=== PATIENT | male | born 1945 | race Caucasian/White ===

== ENCOUNTER → 2018-10-05 | Day surgery (SDC) | payer MEDICARE ==
[~2018-10-05] MED LIST: ARICEPT5 MG PO; CEFTRIAXONE SOD 1 GM/NS 50 ML 50 ML IV ONE; DEPAKOTE125 MG PO; DIGOXIN125 MCG PO; DIVALPROEX SOD250 MG PO; DIVALPROEX SOD500 MG PO; DOCUSATE SODIU100 M1 PO; EPHEDRINE SULFATE INJ 50 MG/10 ML SYR ONE; FENTANYL CITRATE/PF 100MCG/2 ML INJ ONE; HALOPERIDOL1 MG PO; IOPAMIDOL 610MG/1ML 300 MG/ML VIAL IV ONE; LIDOCAINE HCL 2% LOCAL INJ 5 ML SDV VIAL INJ ONE; LISINOPRIL10 MG PO; LORAZEPAM1 MG PO; MAGNESIUM OXID400 MG PO; METOPROLOL SUCC25 MG PO; MIDAZOLAM HCL 2 MG/2 ML VIAL ONE; MULTI-VITAMIN1 EACH PO; POLYETHYLENE GL17 GM PO; PROPOFOL IV EMULSION 10 MG/ML 20 ML VIAL ONE; RISPERDAL1 MG PO; SERTRALINE HCL50 MG PO; SEVOFLURANE INHAL SOLN 250 ML PEN BTL ONE; TRAZODONE HCL50 MG PO; TYLENOL PO; ULTRAM 50MG50 MG PO; XARELTO20 MG PO; ZYPREXA5 MG PO
--- OUTSIDE RECORDS SUMMARY | 2018-10-05 05:35 | XMS REPORT | Summary of Care ---
Author Author [facility] Organization [facility] Address Unknown Phone Unavailable Encounter HQ Bradley(YAHAIRA) [id number] Date(s): 08/15/17 - 08/15/17 [facility] [address] [place] [address]- Discharge Disposition: Home or Self Care Attending Physician: Cecily Hall MD Referring Physician: Cecily Hall MD Vital Signs No data available for this section Problem List Condition Effective Dates Status Health Status Informant Atrial Active fibrillation(Confirm ed) Pacemaker(Confirmed) Active Dementia(Confirmed) Resolved Hypertension(Confirm Resolved ed) Atrophy of Active muscle(Confirmed) Allergies, Adverse Reactions, Alerts Substance Reaction Severity Status NKDA Active Medications No data available for this section Results No data available for this section Immunizations No data available for this section Procedures No data available for this section Social History Social History Type Response Smoking Status Unknown if ever smoked; Exposure to Tobacco Smoke None; Cigarette Smoking Last 365 Days No; Reg Smoking Cessation Counseling No Assessment and Plan No data available for this section
--- OUTSIDE RECORDS SUMMARY | 2018-10-05 05:35 | XMS REPORT | Summary of Care ---
Author Author [facility] Organization [facility] Address Unknown Phone Unavailable Encounter ANDREA Huerta(YAHAIRA) [id number] Date(s): 07/30/17 - 07/30/17 [facility] [address] [place] [address]- [phone] Discharge Diagnosis: Gastrojejunostomy tube dislodgement Discharge Disposition: Home or Self Care Attending Physician: Sree Mujica DO Vital Signs 1 2 3 Most recent to oldest [Reference Range]: 187.96 cm (07/30/17 3:10 PM) Height 97.9 DegF (07/30/17 8:00 PM) 97.8 DegF (07/30/17 5:22 PM) 97.8 DegF (07/30/17 3:10 PM) Temperature Oral [96.4-99.1 DegF] 120/78 mmHg (07/30/17 8:00 PM) 102/75 mmHg (07/30/17 6:30 PM) 95/78 mmHg (07/30/17 5:22 PM) Blood Pressure [90-140/60-90 mmHg] 16 BRMIN (07/30/17 8:00 PM) 18 BRMIN (07/30/17 3:10 PM) Respiratory Rate [14-20 BRMIN] 78 bpm (07/30/17 8:00 PM) 87 bpm (07/30/17 6:30 PM) 86 bpm (07/30/17 5:22 PM) Peripheral Pulse Rate [60-100 bpm] 90.909 kg (07/30/17 3:10 PM) Weight 25.73 m2 (07/30/17 3:10 PM) Body Mass Index Problem List Condition Effective Dates Status Health [...]
--- OUTSIDE RECORDS SUMMARY | 2018-10-05 05:35 | XMS REPORT | Continuity of Care Document ---
Author Author [facility] Address Unknown Phone Unavailable Problems Problem Status Onset Date Classification Date Reported Comments Source J TUBE PLACEMENT Active 08/14/2017 [facility] Discharge Diagnosis: Gastrojejunostomy tube dislodgement 07/30/2017 08/02/2017 [facility] PULLED OUT G TUBE Active 07/30/2017 [facility] Discharge Diagnosis: Laceration of scalp 07/16/2017 07/19/2017 [facility] Discharge Diagnosis: Acute head injury 07/16/2017 07/19/2017 [facility] FALL Active 07/15/2017 [facility] Atrial fibrillation Active Problem 08/18/2017 [facility] Pacemaker Active Problem 08/18/2017 [facility] Dementia Resolved Problem 08/18/2017 [facility] Hypertension Resolved Problem 08/18/2017 [facility] Atrophy of muscle Active Problem 08/18/2017 [facility] DYSPHAGIA, UNSPECIFIED Active [facility] ENCOUNTER FOR ATTENTION TO GASTROSTOMY Active [facility] Medications Medication Details Route Status Patient Instructions Ordering Provider Order Date Source NS (Bolus) IV 1,000 mL, 1,000 ml/hr, Infuse Over: 1 hr, Route: IV, ONCE, Priority: STAT, Dosing Weight 90.909 kg, Start date: 07/16/17 5:50:00 CDT, Duration: 1 doses or times, Stop date: 07/16/17 5:50:00 CDT Inactive 07/16/2017 [facility] Allergies, Adverse Reactions, Alerts Substance Category Reaction Severity Reaction type Status Date Reported Comments Source Immunizations Immunization Date Given Site Status Last Updated Comments Source Results Order Name Results Value Reference Range Date Interpretation Comments Source Gastric Tube Check (VR) Gastric Tube Check (VR) Patient Name: TORRIE PUGH : 1945; Age: 72 years Male MR: [id number] Study: Gastric Tube Check (VR) 08/15/2017 1:48 PM CDT PROCEDURE: Attempted cannulation of the J-tube stoma. Unable to place a J-tube CLINICAL INFORMATION: Need for long-term feeds CONSENT: The procedure, risks, benefits and alternatives were discussed with the patient and written informed consent was obtained. A "time out" was performed per protocol prior to the procedure. 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 Upon physical examination, the stomal entry site was barely visible. The stoma was probed using a 4-Korean catheter with attempt to recannulate. Small amount of contrast was also administered which did not appear within the jejunum. The contrast appears to localize extraluminally, possibly within the peritoneum or abdominal wall. IMPRESSION: Unable to recannulate the J-tube stoma site. SL: [id number] 08/15/2017 - - Read by: Pearl Puentes MD Dictated Date/time: 08/15/17 16:20 Electronically Signed by: Pearl Puentes MD 08/15/17 16:25 FINAL REPORT [facility] Abdomen AP DX Abdomen AP DX Clinical Indication: - J tube replaced at osh, gastrograffin please; Comparison: None FINDINGS: AP supine radiograph of the abdomen, before and after injection of jejunostomy tube. There is no abnormal dilatation of bowel loops. There is no pneumoperitoneum. There are no radiopaque densities noted. There are no acute osseous abnormalities noted. Jejunostomy tube tip in a right lower quadrant loop of jejunum. No actual luminal contrast. IMPRESSION: No acute radiographic abnormalities of the abdomen. Tip of jejunostomy tube in jejunal loop in the right lower quadrant. SL: [id number] 07/30/2017 - - Read by: Ari Cat MD Dictated Date/time: 07/30/17 16:13 Electronically Signed by: Ari Cat MD 07/30/17 16:14 FINAL REPORT [facility] URINE AND STOOL UA Nitrite Negative (07/16/17 5:59 AM) Negative 07/16/2017 [facility] URINE AND STOOL UA Urobilinogen 4.0 mg/dL 0.1 - 1.0 07/16/2017 [facility] URINE AND STOOL UA Sq Epi Occasional /LPF Few /LPF 07/16/2017 [facility] URINE AND STOOL UA Leuk Est Negative (07/16/17 5:59 AM) Negative 07/16/2017 [facility] URINE AND STOOL UA WBC 1 /HPF 0 - 5 07/16/2017 [facility] URINE AND STOOL UA Bacteria Occasional /HPF None Seen /HPF 07/16/2017 [facility] URINE AND STOOL UA RBC 1 /HPF 0 - 2 07/16/2017 [facility] URINE AND STOOL UA Blood Negative (07/16/17 5:59 AM) Negative 07/16/2017 [facility] URINE AND STOOL UA Glucose Negative mg/dL Negative mg/dL 07/16/2017 [facility] URINE AND STOOL UA Ketones Negative mg/dL Negative mg/dL 07/16/2017 [facility] URINE AND STOOL UA Bili Negative *NA* (07/16/17 5:59 AM) Negative 07/16/2017 [facility] URINE AND STOOL UA pH 7.0 5.0 - 8.0 07/16/2017 [facility] URINE AND STOOL UA Spec Grav 1.016 <=1.030 07/16/2017 [facility] URINE AND STOOL UA Protein Negative mg/dL Negative mg/dL 07/16/2017 [facility] URINE AND STOOL UA Turbidity Clear (07/16/17 5:59 AM) Clear 07/16/2017 [facility] URINE AND STOOL UA Color Yellow *NA* (07/16/17 5:59 AM) Yellow 07/16/2017 [facility] CARDIAC ENZYMES CK MB Index 3.1 0.0 - 2.5 07/16/2017 [facility] CARDIAC ENZYMES Troponin-I null 0.00 - 0.40 07/16/2017 [facility] CARDIAC ENZYMES CK MB 0.5 ng/mL 0.5 - 3.6 07/16/2017 [facility] CARDIAC ENZYMES Total CK 16 unit/L 12 - 191 07/16/2017 [facility] CHEM PANEL eGFR 100 mL/min/1.73m2 07/16/2017 Result Comment: The eGFR is calculated using the CKD-EPI formula. In most young, healthy individuals the eGFR will be >90 mL/min/1.73m2. The eGFR declines with age. An eGFR of 60-89 may be normal in some populations, particularly the elderly, for whom the CKD-EPI formula has not been extensively validated. Use of the eGFR is not recommended in the following populations: Individuals with unstable creatinine concentrations, including patients and those with serious co-morbid conditions. Patients with extremes in muscle mass or diet. The data above are obtained from the National Kidney Disease Education Program (NKDEP) which additionally recommends that when the eGFR is used in patients with extremes of body mass index for purposes of drug dosing, the eGFR should be multiplied by the estimated BMI. [facility] CHEM PANEL B/C Ratio 29 6 - 25 07/16/2017 [facility] Globulin 4.3 g/dL 2.7 - 4.2 07/16/2017 [facility] CHEM PANEL A/G Ratio 0.6 0.7 - 1.6 07/16/2017 [facility] CHEM PANEL Alk Phos 75 unit/L 39 - 136 07/16/2017 [facility] CHEM PANEL Bili Total 0.7 mg/dL 0.2 - 1.3 07/16/2017 [facility] CHEM PANEL AGAP 10.5 meq/L 10.0 - 20.0 07/16/2017 [facility] CHEM PANEL AST 13 unit/L 0 - 37 07/16/2017 [facility] PAN[facility] Calcium Lvl 8.6 mg/dL 8.5 - 10.5 07/16/2017 [facility] CHEM PANEL Total Protein 6.8 g/dL 6.4 - 8.4 07/16/2017 [facility] CHEM PANEL Albumin Lvl 2.5 g/dL 3.5 - 5.0 07/16/2017 [facility] CHEM PANEL ALT 19 unit/L 0 - 65 07/16/2017 [facility] CHEM PANEL CO2 25 meq/L 24 - 32 07/16/2017 [facility]M PANEL Creatinine Lvl 0.58 mg/dL 0.50 - 1.40 07/16/2017 [facility]M PANEL Sodium Lvl 131 meq/L 135 - 145 07/16/2017 [facility]M PANEL Potassium Lvl 4.5 meq/L 3.5 - 5.1 07/16/2017 [facility] CHEM PANEL Chloride Lvl 100 meq/L 95 - 109 07/16/2017 [facility] CHEM PANEL BUN 17 mg/dL 7 - 22 07/16/2017 [facility] PANEL Glucose Lvl 93 mg/dL 70 - 99 07/16/2017 [facility] HEMATOLOGY Monocytes 7.3 % 2.0 - 12.0 07/16/2017 [facility] HEMATOLOGY Lymphocytes 24.1 % 20.0 - 40.0 07/16/2017 [facility] HEMATOLOGY Segs 64.6 % 45.0 - 75.0 07/16/2017 [facility] HEMATOLOGY Eosinophils 3.1 % 0.0 - 4.0 07/16/2017 [facility] HEMATOLOGY Basophils # 0.1 K/CMM 0.0 - 0.2 07/16/2017 [facility] HEMATOLOGY Eosinophils # 0.2 K/CMM 0.0 - 0.5 07/16/2017 [facility] HEMATOLOGY Monocytes # 0.4 K/CMM 0.0 - 0.8 07/16/2017 [facility] Lymphocytes # 1.4 K/CMM 1.0 - 5.5 07/16/2017 [facility] Segs-Bands # 3.8 K/CMM 1.5 - 8.1 07/16/2017 [facility] Basophils 0.9 % 0.0 - 1.0 07/16/2017 [facility] INR 1.52 0.85 - 1.17 07/16/2017 [facility] PT 18.6 s 12.0 - 14.7 07/16/2017 [facility] PTT 32.0 s 22.9 - 35.8 07/16/2017 [facility] MCHC 33.9 g/dL 32.0 - 36.0 07/16/2017 [facility] MPV 7.5 fL 7.4 - 10.4 07/16/2017 [facility] Platelet 385 K/CMM 133 - 450 07/16/2017 [facility] RDW 18.0 % 11.5 - 14.5 07/16/2017 [facility] RBC 4.16 M/CMM 4.70 - 6.10 07/16/2017 [facility] WBC 5.9 K/CMM 3.7 - 10.4 07/16/2017 [facility] MCH 32.1 pg 27.0 - 31.0 07/16/2017 [facility] Hgb 13.3 g/dL 14.0 - 18.0 07/16/2017 [facility] Hct 39.4 % 42.0 - 54.0 07/16/2017 [facility] MCV 94.7 fL 80.0 - 94.0 07/16/2017 [facility] Pelvis AP DX Pelvis AP DX Study: Pelvis, single view Clinical Indication: - fall, pelvic pain Comparison: None FINDINGS: Single frontal view of the pelvis shows no acute displaced bony fracture or joint dislocation. Bones are demineralized. Degenerative change in the lower lumbar spine is seen. IMPRESSION: No acute bony abnormality of the pelvis. SL: [id number] 07/16/2017 - - Read by: Anders Moss MD Dictated Date/time: 07/16/17 08:17 Electronically Signed by: Anders Moss MD 07/16/17 08:18 FINAL REPORT [facility] Chest 1view DX Chest 1view DX CHEST RADIOGRAPH SINGLE VIEW INDICATION: Posttraumatic chest pain COMPARISON: None IMPRESSION: An intracardiac pacer device is in place. The cardiac silhouette appears prominent, without radiographic evidence of acute congestive failure. There is blunting of the left costophrenic sulcus, suggesting potential mild left pleural effusion or pleural thickening. Linear atelectasis or scarring is noted at the right lung base. There is no consolidation. No pneumothorax is visible. No acute bony abnormalities are seen. SL:07/16/2017 - - Read by: Arturo Junior MD Dictated Date/time: 07/16/17 06:31 Electronically Signed by: Arturo Junior MD 07/16/17 06:32 FINAL REPORT [facility] Brain wo contrast CT Brain wo contrast CT CT BRAIN WITHOUT CONTRAST, CT CERVICAL SPINE WITHOUT CONTRAST INDICATION: Posttraumatic head and cervical spine pain, ct dlp: 1024.06 mgy-cm - pain post fall/Pt. Was sleeping and rolled off bed w/ minor head lac. Pt is on intact coagulation. Unknown LOC. COMPARISON: None DISCUSSION: BRAIN: There are generalized involutional changes of the brain and microangiopathic changes of the white matter. There is no evidence of acute vascular insults, space occupying lesions, hemorrhage, hydrocephalus, midline shift, or extra- axial fluid collections. The calvarium is intact. CERVICAL SPINE: There are no acute fractures or subluxations. Vertebral body alignment is within normal limits. There is advanced cervical spondylosis, resulting in varying degrees of spinal canal stenosis. Spinal canal stenosis appears the worst at C5- C6, potentially moderate or severe. There is severe foraminal stenosis at multiple levels. The soft tissues are grossly unremarkable. Ligament, spinal cord, and/or vascular abnormalities cannot be excluded on the basis of this examination. IMPRESSION: 1. Chronic age-related changes of the brain. No acute intracranial abnormalities are visualized. 2. No acute cervical spine abnormalities are visualized. Advanced cervical spondylosis is noted. SL:07/16/2017 - - Read by: Arturo Junior MD Dictated Date/time: 07/16/17 05:13 Electronically Signed by: Arturo Junior MD 07/16/17 05:22 FINAL REPORT [facility] Spine cervical wo contrast CT Spine cervical wo contrast CT CT BRAIN WITHOUT CONTRAST, CT CERVICAL SPINE WITHOUT CONTRAST INDICATION: Posttraumatic head and cervical spine pain, ct dlp: 1024.06 mgy-cm - pain post fall/Pt. Was sleeping and rolled off bed w/ minor head lac. Pt is on intact coagulation. Unknown LOC. COMPARISON: None DISCUSSION: BRAIN: There are generalized involutional changes of the brain and microangiopathic changes of the white matter. There is no evidence of acute vascular insults, space occupying lesions, hemorrhage, hydrocephalus, midline shift, or extra- axial fluid collections. The calvarium is intact. CERVICAL SPINE: There are no acute fractures or subluxations. Vertebral body alignment is within normal limits. There is advanced cervical spondylosis, resulting in varying degrees of spinal canal stenosis. Spinal canal stenosis appears the worst at C5- C6, potentially moderate or severe. There is severe foraminal stenosis at multiple levels. The soft tissues are grossly unremarkable. Ligament, spinal cord, and/or vascular abnormalities cannot be excluded on the basis of this examination. IMPRESSION: 1. Chronic age-related changes of the brain. No acute intracranial abnormalities are visualized. 2. No acute cervical spine abnormalities are visualized. Advanced cervical spondylosis is noted. SL:16 07/16/2017 - - Read by: Arturo Junior MD Dictated Date/time: 07/16/17 05:13 Electronically Signed by: Arturo Junior MD 07/16/17 05:22 FINAL REPORT [facility] Vital Signs Vital Sign Value Date Comments Source Respitory Rate 16 07/31/2017 [facility] Temperature Oral (F) 97.9 F 07/31/2017 [facility] Systolic (mm Hg) 120 07/31/2017 [facility] Diastolic (mm Hg) 78 07/31/2017 [facility] Heart Rate 78 07/31/2017 [facility] Heart Rate 87 07/30/2017 [facility] Systolic (mm Hg) 102 07/30/2017 [facility] Diastolic (mm Hg) 75 07/30/2017 [facility] Temperature Oral (F) 97.8 F 07/30/2017 [facility] Systolic (mm Hg) 95 07/30/2017 [facility] Diastolic (mm Hg) 78 07/30/2017 [facility] Heart Rate 86 07/30/2017 [facility] Weight 90.909 07/30/2017 [facility] BMI Calculated 25.73 07/30/2017 [facility] Respitory Rate 18 07/30/2017 [facility] Temperature Oral (F) 97.8 F 07/30/2017 [facility] Height 187.96 cm 07/30/2017 [facility] Systolic (mm Hg) 91 07/16/2017 [facility] Diastolic (mm Hg) 78 07/16/2017 [facility] Respitory Rate 20 07/16/2017 [facility] Systolic (mm Hg) 99 07/16/2017 [facility] Diastolic (mm Hg) 77 07/16/2017 [facility] Systolic (mm Hg) 101 07/16/2017 [facility] Diastolic (mm Hg) 76 07/16/2017 [facility] Respitory Rate 23 07/16/2017 [facility] Respitory Rate 24 07/16/2017 [facility] Heart Rate 95 07/16/2017 [facility] Temperature Oral (F) 98 F 07/16/2017 [facility] Temperature Oral (F) 97.8 F 07/16/2017 [facility] Weight 90.909 07/16/2017 [facility] BMI Calculated 25.73 07/16/2017 [facility] Heart Rate 81 07/16/2017 [facility] Height 187.96 cm 07/16/2017 [facility] Encounters Location Location Details Encounter Type Encounter Number Reason For Visit Attending Provider ADM Date DC Date Status Source [facility] Emergency [id number] Joel Marino 07/16/2017 07/16/2017 [facility] Emergency [id number] Sree Milesuma 07/30/2017 07/31/2017 [facility] Outpatient [id number] Cecily Hall 08/15/2017 08/16/2017 [facility] Procedures Procedure Code Date Perfomer Comments Source
--- OUTSIDE RECORDS SUMMARY | 2018-10-05 05:35 | XMS REPORT | Summary of Care ---
Author Author [facility] Organization [facility] Address Unknown Phone Unavailable Encounter ANDREA Huerta(YAHAIRA) [id number] Date(s): 07/16/17 - 07/16/17 [facility] [id number] [place] [address]- Discharge Diagnosis: Laceration of scalp Discharge Diagnosis: Acute head injury Discharge Disposition: Home or Self Care Attending Physician: Joel Marino MD Vital Signs 1 2 3 Most recent to oldest [Reference Range]: 187.96 cm (07/16/17 4:08 AM) Height 98 DegF (07/16/17 4:30 AM) 97.8 DegF (07/16/17 4:08 AM) Temperature Oral [96.4-99.1 DegF] 91/78 mmHg (07/16/17 9:42 AM) 99/77 mmHg (07/16/17 8:50 AM) 101/76 mmHg (07/16/17 8:07 AM) Blood Pressure [90-140/60-90 mmHg] 20 BRMIN (07/16/17 9:42 AM) 23 BRMIN *HI* (07/16/17 8:07 AM) 24 BRMIN *HI* (07/16/17 6:25 AM) Respiratory Rate [14-20 BRMIN] 95 bpm (07/16/17 4:30 AM) 81 bpm (07/16/17 4:08 AM) Peripheral Pulse Rate [60-100 bpm] 90.909 kg (07/16/17 4:08 AM) Weight 25.73 m2 (07/16/17 4:08 AM) Body Mass Index Problem List No data available for this section Allergies, Adverse Reactions, Alerts Substance Reaction Severity Status NKDA Active Medications NS (Bolus) IV 1,000 mL, 1,000 ml/hr, Infuse Over: 1 hr, Route: IV, ONCE, Priority: STAT, Dosin g Weight 90.909 kg, Start date: 07/16/17 5:50:00 CDT, Duration: 1 doses or times , Stop date: 07/16/17 5:50:00 CDT Start Date: 07/16/17 Stop Date: 07/16/17 Status: Completed Results ELECTROLYTES Most recent to 1 oldest [Reference Range]: Sodium Lvl [135-145 131 mEq/L mEq/L] *LOW* (07/16/17 4:39 AM) Potassium Lvl 4.5 mEq/L [3.5-5.1 mEq/L] (07/16/17 4:39 AM) Chloride Lvl [95-109 100 mEq/L mEq/L] (07/16/17 4:39 AM) CO2 [24-32 mEq/L] 25 mEq/L (07/16/17 4:39 AM) AGAP [10.0-20.0 10.5 mEq/L mEq/L] (07/16/17 4:39 AM) CHEM PANEL Most recent to 1 oldest [Reference Range]: Creatinine Lvl 0.58 mg/dL [0.50-1.40 mg/dL] (07/16/17 4:39 AM) eGFR 100 mL/min/1.73m2 1 *NA* (07/16/17 4:39 AM) BUN [7-22 mg/dL] 17 mg/dL (07/16/17 4:39 AM) B/C Ratio [6-25] 29 *HI* (07/16/17 4:39 AM) Glucose Lvl [70-99 93 mg/dL mg/dL] (07/16/17 4:39 AM) Total Protein 6.8 g/dL [6.4-8.4 g/dL] (07/16/17 4:39 AM) Albumin Lvl [3.5-5.0 2.5 g/dL g/dL] *LOW* (07/16/17 4:39 AM) Globulin [2.7-4.2 4.3 g/dL g/dL] *HI* (07/16/17 4:39 AM) A/G Ratio [0.7-1.6] 0.6 *LOW* (07/16/17 4:39 AM) Calcium Lvl 8.6 mg/dL [8.5-10.5 mg/dL] (07/16/17 4:39 AM) ALT [0-65 unit/L] 19 unit/L (07/16/17 4:39 AM) AST [0-37 unit/L] 13 unit/L (07/16/17 4:39 AM) Alk Phos [39-136 75 unit/L unit/L] (07/16/17 4:39 AM) Bili Total [0.2-1.3 0.7 mg/dL mg/dL] (07/16/17 4:39 AM) 1Result Comment: The eGFR is calculated using the [...] from the National Kid[employer] Education Program ( NKDEP) which additionally recommends that when the eGFR is used in patients with extremes of body mass index for purposes of drug dosing, the eGFR should be mul tiplied by the estimated BMI. CARDIAC ENZYMES Most recent to 1 oldest [Reference Range]: Total CK [12-191 16 unit/L unit/L] (07/16/17 4:39 AM) CK MB [0.5-3.6 0.5 ng/mL ng/mL] (07/16/17 4:39 AM) CK MB Index 3.1 [0.0-2.5] *HI* (07/16/17 4:39 AM) Troponin-I <0.02 ng/mL [0.00-0.40 ng/mL] (07/16/17 4:39 AM) URINE AND STOOL Most recent to 1 oldest [Reference Range]: UA Turbidity [Clear] Clear (07/16/17 5:59 AM) UA Color [Yellow] Yellow *NA* (07/16/17 5:59 AM) UA pH [5.0-8.0] 7.0 (07/16/17 5:59 AM) UA Spec Grav 1.016 [<=1.030] (07/16/17 5:59 AM) UA Glucose [Negative Negative mg/dL mg/dL] *NA* (07/16/17 5:59 AM) UA Blood [Negative] Negative (07/16/17 5:59 AM) UA Ketones [Negative Negative mg/dL mg/dL] *NA* (07/16/17 5:59 AM) UA Protein [Negative Negative mg/dL mg/dL] (07/16/17 5:59 AM) UA Urobilinogen 4.0 mg/dL [0.1-1.0 mg/dL] *HI* (07/16/17 5:59 AM) UA Bili [Negative] Negative *NA* (07/16/17 5:59 AM) UA Leuk Est Negative [Negative] (07/16/17 5:59 AM) UA Nitrite Negative [Negative] (07/16/17 5:59 AM) UA WBC [0-5 /HPF] 1 /HPF (07/16/17 5:59 AM) UA RBC [0-2 /HPF] 1 /HPF (07/16/17 5:59 AM) UA Bacteria [None Occasional /HPF Seen /HPF] *NA* (07/16/17 5:59 AM) UA Sq Epi [Few /LPF] Occasional /LPF *NA* (07/16/17 5:59 AM) HEMATOLOGY Most recent to 1 oldest [Reference Range]: WBC [3.7-10.4 K/CMM] 5.9 K/CMM (07/16/17 4:39 AM) RBC [4.70-6.10 4.16 M/CMM M/CMM] *LOW* (07/16/17 4:39 AM) Hgb [14.0-18.0 g/dL] 13.3 g/dL *LOW* (07/16/17 4:39 AM) Hct [42.0-54.0 %] 39.4 % *LOW* (07/16/17 4:39 AM) MCV [80.0-94.0 fL] 94.7 fL *HI* (07/16/17 4:39 AM) MCH [27.0-31.0 pg] 32.1 pg *HI* (07/16/17 4:39 AM) MCHC [32.0-36.0 33.9 g/dL g/dL] (07/16/17 4:39 AM) RDW [11.5-14.5 %] 18.0 % *HI* (07/16/17 4:39 AM) Platelet [133-450 385 K/CMM K/CMM] (07/16/17 4:39 AM) MPV [7.4-10.4 fL] 7.5 fL (07/16/17 4:39 AM) Segs [45.0-75.0 %] 64.6 % (07/16/17 4:39 AM) Lymphocytes 24.1 % [20.0-40.0 %] (07/16/17 4:39 AM) Monocytes [2.0-12.0 7.3 % %] (07/16/17 4:39 AM) Eosinophils [0.0-4.0 3.1 % %] (07/16/17 4:39 AM) Basophils [0.0-1.0 0.9 % %] (07/16/17 4:39 AM) Segs-Bands # 3.8 K/CMM [1.5-8.1 K/CMM] (07/16/17 4:39 AM) Lymphocytes # 1.4 K/CMM [1.0-5.5 K/CMM] (07/16/17 4:39 AM) Monocytes # [0.0-0.8 0.4 K/CMM K/CMM] (07/16/17 4:39 AM) Eosinophils # 0.2 K/CMM [0.0-0.5 K/CMM] (07/16/17 4:39 AM) Basophils # [0.0-0.2 0.1 K/CMM K/CMM] (07/16/17 4:39 AM) PT [12.0-14.7 18.6 seconds seconds] *HI* (07/16/17 4:39 AM) INR [0.85-1.17] 1.52 *HI* (07/16/17 4:39 AM) PTT [22.9-35.8 32.0 seconds seconds] (07/16/17 4:39 AM) Immunizations No data available for this section Procedures No data available for this section Social History Social History Type Response Smoking Status Unknown if ever smoked; Exposure to Tobacco Smoke None; Cigarette Smoking Last 365 Days No; Reg Smoking Cessation Counseling No Assessment and Plan No data available for this section
[2018-10-05 06:44] LABS: BASOPHILS % 0.4 % (0.0-1.0); EOSINOPHILS # (AUTO) 0.2 (0.0-0.4); EOSINOPHILS % 3.4 % (0.0-6.0); HEMATOCRIT 45.3 % (38.2-49.6); HEMOGLOBIN 15.1 g/dL (14.0-18.0); LYMPHOCYTES # (AUTO) 3.1 (1.0-3.2); LYMPHOCYTES % 44.3 % (18.0-39.1); MEAN CORPUSCULAR HEMOGLOBIN 30.9 pg (28-32); MEAN CORPUSCULAR HGB CONC 33.3 g/dL (31-35); MEAN CORPUSCULAR VOLUME 92.6 fL (81-99); MONOCYTES # (AUTO) 0.6 (0.2-0.8); MONOCYTES % 8.9 % (4.4-11.3); NEUTROPHILS % 42.6 % (38.7-80.0); PLATELET COUNT 197 x10e3/uL (140-360); RED BLOOD COUNT 4.89 x10e6/uL (4.3-5.7); RED CELL DISTRIBUTION WIDTH 13.9 % (11.7-14.4)
--- NOTE | 2018-10-05 07:01 | Diagnostic Imaging Report ---
EXAMINATION: CHEST 2 VIEWS INDICATION: Preop. COMPARISON: Chest x-ray 05/23/2017 FINDINGS: PA and lateral views TUBES and LINES: Left chest wall cardiac pacer with lead tip overlying the right ventricle. LUNGS: Lungs are well inflated. Calcified granuloma in the right lower lung. There is no evidence of pneumonia or pulmonary edema. PLEURA: No pleural effusion or pneumothorax. HEART AND MEDIASTINUM: The cardiomediastinal silhouette is unremarkable. BONES AND SOFT TISSUES: No acute osseous lesion. Soft tissues are unremarkable. UPPER ABDOMEN: No free air under the diaphragm. IMPRESSION: No acute thoracic abnormality. Signed by: DR. Collins Mcqueen MD on 10/05/2018 6:57 AM
[2018-10-05 08:50] VITALS: BP 120/89
--- NOTE | 2018-10-05 14:54 | Operative Report ---
DATE OF PROCEDURE: October 05, 2018 PREOPERATIVE DIAGNOSES 1. Microscopic hematuria. 2. Right ureteral calculus. 3. Right hydronephrosis. POSTOPERATIVE DIAGNOSES 1. Microscopic hematuria. 2. Right ureteral calculus. 3. Right hydronephrosis. PROCEDURES 1. A cystourethroscopy with left ureter catheterization and left retrograde pyelogram (entirely separate procedure for diagnosis of microscopic hematuria). 2. Right-sided ureteroscopy with laser lithotripsy (entirely separate procedure for fragmentation of right ureteral calculus). 3. Right-sided ureteroscopy with stone extraction (entirely separate procedure for the explicit purpose of sending stone for analysis, not required for laser lithotripsy). 4. Supervision of fluoroscopy for ureteroscopy. 5. Supervision of fluoroscopy for retrograde pyelograms. 6. Interpretation of retrograde pyelograms. ANESTHESIA: General. ESTIMATED BLOOD LOSS: Minimal. COMPLICATIONS: None. INDICATIONS FOR PROCEDURE: Mr. Dixon is a 73-year-old male patient with a history of right renal colic, found to have a right ureteral calculus and microscopic hematuria. He and I had a long discussion about alternatives, the risks, and benefits including doing nothing, cystoscopy, IVP, retrograde pyelograms, renal ultrasound, ureteroscopy, shockwave lithotripsy, percutaneous surgery, open surgery. He voiced understanding of the options, the alternatives, the risks and the benefits and he elected to proceed. PROCEDURE IN DETAIL: After informed consent was obtained, the patient was taken to the operative suite. He was placed supine on the operating table. He underwent general anesthesia by anesthesia service. He was placed in dorsal lithotomy position, sterilely prepped and draped in the standard fashion for cystoscopy. A 21-Indian cystoscope was inserted per urethra and normal urethra was noted. Panendoscope with no tumors, no stones. Both ureteral orifices revealed normal anatomic location and position. Bilateral retrograde pyelogram was performed. It revealed distal 7 x 7-mm filling defect with proximal hydronephrosis on the left side with normal retrograde pyelograms. A guidewire was inserted. The right ureteral orifice was dilated. The ureteroscope was advanced to the level of the stone. Utilizing 365-micron laser fiber, the stone was obliterated into multiple small fragments. The basket was introduced. Stone fragments were extracted and then passed off the table as a specimen with the explicit purpose of sending the stone for analysis. This was not required for laser lithotripsy. At this time, a retrograde pyelogram was performed again through the scope revealing no other obstructing filling defects. The bladder was drained. Safety wire was removed. The patient was awakened from anesthesia and transported to the recovery room in excellent condition. SUPERVISION OF FLUOROSCOPY AND INTERPRETATION OF RETROGRADE PYELOGRAPHY: I was present throughout the entire procedure and supervised the fluoroscopy for both ureteroscopy portions, ureteral dilation, and retrograde pyelogram portions. Attention was turned to the left ureteral orifice. It was catheterized. A retrograde pyelogram was performed and the left shows a delicate ureter, a delicate pelvicaliceal system. There was no evidence of filling defects. On the right side, there was a distal 7 x 7-mm ureteral calculus with proximal hydronephrosis. Postoperative views reveal interim resolution of the stone. Job#: [id number] MICHELE
== END | disposition home or self-care (01) ==
LOC: OR 05:33
PROVIDERS: ATTEND Urology
DX: N13.2 Hydronephrosis with renal and ureteral calculous obstruction (principal); R31.29 Other microscopic hematuria; N39.0 Urinary tract infection, site not specified; I11.0 Hypertensive heart disease with heart failure; I50.9 Heart failure, unspecified; I25.10 Atherosclerotic heart disease of native coronary artery without angina pectoris; G20 Parkinson's disease; F02.80 Dementia in other diseases classified elsewhere, unspecified severity, without behavioral disturbance, psychotic disturbance, mood disturbance, and anxiety; N40.1 Benign prostatic hyperplasia with lower urinary tract symptoms; N13.8 Other obstructive and reflux uropathy; I86.1 Scrotal varices; R32 Unspecified urinary incontinence; N28.1 Cyst of kidney, acquired; I48.91 Unspecified atrial fibrillation; Z95.0 Presence of cardiac pacemaker; Z93.1 Gastrostomy status; Z79.02 Long term (current) use of antithrombotics/antiplatelets
CPT/HCPCS: 36415; 52353; 71046; 74420; 85025; 88300; 93005; J0696; J2001; J2250; J2704; Q9967